=== PATIENT | female | born 1945 | race Caucasian/White ===

== ENCOUNTER 2020-07-24 09:19 | Inpatient (IN) | payer MEDICARE ==
--- OUTSIDE RECORDS SUMMARY | 2020-07-24 09:23 | XMS REPORT | Continuity of Care Document ---
:1945 Author Organization [facility] t Address [address] [place] [address] Care Team Providers Name Role Phone Unavailable Unavailable Unavailable Payers Payer Name Policy Type Policy Number Effective Date Expiration Date S ource Problems Condition Condition Condition Status Onset Resolution Last Treating Co mments Source Name Details Category Date Date Treatment Clinician Date Hypothyroi Problem Active 2020-07-05 M emoria dism, 04:34:20 l unspecifie Nacho n d Hypothyroi dism, unspecifie d Active Problem 07/05/2020 Enayet Rahim HLD Problem Active 2020-07-05 Memor ia 04:34:20 l HLD [place] Active Problem 07/05/2020 Enayet Rahim Maternal Diagnosis Active 2017-07-07 M emoria care for 04:10:19 l benign Maternal Nacho n tumor of care for corpus benign uteri, tumor of unspecifie corpus d uteri, trimester unspecifie d trimester Active Diagnosis 07/07/2017 Enayet Rahim Tinnitus Problem Active 2020-07-05 Mem oria of both 04:34:20 l ears Tinnitus Nacho n of both ears Active Problem 07/05/2020 Enayet Rahim Dizziness Diagnosis Active 2017-07-07 Memoria 04:10:19 l Josh Dizziness Active Diagnosis 07/07/2017 Enayet Rahim Acute Diagnosis Active 2018-10-09 Mem oria sinusitis, 04:10:41 l unspecifie Acute Kamila nn d sinusitis, unspecifie d Active Diagnosis 10/09/2018 Enayet Rahim Screening Diagnosis Active 2017-07-07 Memoria for breast 04:10:19 l cancer [place] Screening for breast cancer Active Diagnosis 07/07/2017 Enayet Rahim Other Diagnosis Active 2017-07-07 Mem oria specified 04:10:19 l bacterial Other Nacho n agents as specified the cause bacterial of agents as diseases the cause classified of elsewhere diseases classified elsewhere Active Diagnosis 07/07/2017 Enzacariaset Jeanm Intramural Diagnosis Active 2017-07-07 Memoria leiomyoma 04:10:19 l of uterus Josh Intramural leiomyoma of uterus Active Diagnosis 07/07/2017 Enzacariaset Jeanm Radicular Diagnosis Active 2017-03-02 Memoria pain of 05:11:39 l right Josh lower back Radicular pain of right lower back Active Diagnosis 03/02/2017 Enzacariaset him Acute Diagnosis Active 2017-03-02 Mem oria right hip 05:11:39 l pain Acute Josh right hip pain Active Diagnosis 03/02/2017 Enpatricia Penam Abnormal Diagnosis Active 2017-08-22 M emoria mammogram 04:10:08 l Abnormal Nacho n mammogram Active Diagnosis 08/22/2017 Enpatricia Penam Vaginal Diagnosis Active 2018-04-28 Me moria yeast 05:10:21 l infection Vaginal Herm yanet yeast infection Active Diagnosis 04/28/2018 Enpatricia Penam Solitary Problem Active 2020-07-05 Mem oria right 04:34:20 l kidney Solitary Nacho n right kidney Active Problem 07/05/2020 Enzacariaset him Neuropathy Problem Active 2020-07-05 M emoria 04:34:20 l Josh Neuropathy Active Problem 07/05/2020 Enpatricia Penam History of Diagnosis Active 2015-12-08 Memoria nephrectom 04:23:53 l y History Josh of nephrectom y Active Diagnosis 12/08/2015 Enayet Rahim Infiltrati Problem Active 2020-07-05 M emoria ng ductal 04:34:20 l carcinoma Josh Infiltrati ng ductal carcinoma Active Problem 07/05/2020 Enzacariaset Rahim Infected Diagnosis Active 2019-02-11 M emoria tooth 05:10:52 l Infected Nacho n tooth Active Diagnosis 02/11/2019 Enzacariaset him Radiation Diagnosis Active 2019-02-11 Memoria therapy 05:10:52 l complicati Nacho n on, Radiation subsequent therapy encounter complicati on, subsequent encounter Active Diagnosis 02/11/2019 Enayet Rahim BMI Diagnosis Active 2020-07-05 Mem oria 24.0-24.9, 04:30:19 l adult BMI [place] 24.0-24.9, adult Active Diagnosis 07/05/2020 Enayet Rahim Breast Diagnosis Active 2018-10-09 Mem oria cancer 04:10:41 l screening Breast Kamila nn cancer screening Active Diagnosis 10/09/2018 Enayet Rahim Osteoporos Diagnosis Active 2016-03-12 Memoria is 05:18:58 l screening Josh Osteoporos is screening Active Diagnosis 03/12/2016 Enayet Rahim BMI Diagnosis Active 2018-10-09 Mem oria 25.0-25.9, 04:10:41 l adult BMI Josh 25.0-25.9, adult Active Diagnosis 10/09/2018 Enayet Rahim Pain in Diagnosis Active 2018-10-09 Me moria left thigh 04:10:41 l Pain in Josh left thigh Active Diagnosis 10/09/2018 Enayet Rahim Seasonal Problem Active 2020-07-05 Mem oria allergic 04:34:20 l rhinitis Seasonal Herm ynaet due to allergic pollen rhinitis due to pollen Active Problem 07/05/2020 Enayet Rahim BMI Diagnosis Active 2020-07-05 Mem oria 22.0-22.9, 04:14:04 l adult BMI [place] 22.0-22.9, adult Active Diagnosis 07/05/2020 Enayet Rahim 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 Active Problem 07/05/2020 Enayet Rahim 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 04:34:20 l diseases [place] classified Polyneurop elsewhere athy in diseases classified elsewhere Active Problem 07/05/2020 Enayet Rahim Hyperglyce Diagnosis Active 2020-01-21 Memoria nate 05:10:07 l Josh Hyperglyce nate Active Diagnosis 01/21/2020 Enayet Rahim Pelvic Diagnosis Active 2020-01-21 Mem oria pain 05:10:07 l Pelvic [place] pain Active Diagnosis 01/21/2020 Enayet Rahim Persistent Diagnosis Active 2020-01-21 Memoria proteinuri 05:10:07 l a Josh Persistent proteinuri a Active Diagnosis 01/21/2020 Enayet Rahim Nephrogeno Problem Active 2020-07-05 M emoria us 04:34:20 l proteinuri Nacho n a Nephrogeno us proteinuri a Active Problem 07/05/2020 Enayet Rahim History of Problem Active 2020-07-05 M emoria left 04:34:20 l nephrectom History Her matta y of left nephrectom y Active Problem 07/05/2020 Enayet Rahim Skin Diagnosis Active 2020-07-05 Mem oria lesion 04:14:04 l Skin Josh lesion Active Diagnosis 07/05/2020 Enzacariaset Rahim Acute pain Diagnosis Active 2020-07-05 Memoria of right 04:14:04 l shoulder Acute [place] pain of right shoulder Active Diagnosis 07/05/2020 Enayet Rahim BMI Diagnosis Active 2020-05-25 Mem oria 21.0-21.9, 04:11:03 l adult BMI [place] 21.0-21.9, adult Active Diagnosis 05/25/2020 Enayet Rahim Encounter Diagnosis Active 2020-05-25 Memoria for 04:11:03 l screening Josh for Encounter depression for screening for depression Active Diagnosis 05/25/2020 Enzacariaset Rahim Age-relate Problem Active 2020-07-05 M emoria d 04:34:20 l osteoporos Nacho n is without Age-relate current d pathologic osteoporos al is without fracture current pathologic al fracture Active Problem 07/05/2020 Enayet Rahim Essential Problem Active 2020-07-05 Me moria (primary) 04:34:20 l hypertensi Nacho n on Essential (primary) hypertensi on Active Problem Enayet Rahim Allergies, Adverse Reactions, Alerts Allergy Allergy Status Severity Reaction(s) Onset Inactive Treating Comm ents Source Name Type Date Date Clinician Amoxicil Amoxicil Active Info Not Dago mary jane rose marie rose marie Available 11-27 l 00:00: [place] 00 No Known DA Active U [facility] 11[facility]30 [place] Allergie 00:00: d s 00 [facility] irena FA Active [facility] [place] 00:00: d 00 [facility] Christiano Verde. Active Info Not Dago mary jane Available 11-04 l 00:00: [place] 00 No Known DA Active U [facility] 4-19 Clear nces 00:00: [place] 00 [facility] MANGOS DA Active [facility] 4-16 Clear 00:00: [place] 00 [facility] Social History Social Habit Start Date Stop Date Quantity Comments Source Useofrecreational/ 2016-03-06 2016-03-06 Memori al Josh [facility]drugs? 00:00:00 00:00:00 Medications Ordered Filled Start Stop Current Ordering Indication Dosage Frequency Signature Comments Components Source Medication Medication Date Date Medication? Clinician (SIG) Name Name Clonidine Yes Gallo take 1 Memor ia HCl - Rubi tablet by l 04:34: mouth Josh 20 twice a day Folic Acid Yes Gallo not Memori a - Rubi defined l 04:30: [place] 19 Gabapentin Yes Gallo 1 capsule M emoria - Rubi l 04:30: [place] 19 Aspirin 2020-0 Yes Gallo 1 tablet Memor ia Adult Low - Rubi l Dose 04:30: [place] 19 Clonidine 2020- Yes Gallo take 1 Memor ia HCl - Rubi tablet by l 04:30: mouth two Josh 19 times daily Vitamin B12 2020- Yes Gallo not Memor ia -29 Rubi defined l 04:30: Josh 19 Synthroid 2020- Yes Gallo take 1 Memor ia -29 Rubi tablet by l 04:30: mouth once Josh 19 a day Alendronate Yes Gallo TAKE 1 Mem oria Sodium -29 Rubi TABLET l 04:30: [place] 19 Rosuvastati 2020- Yes Gallo 1 tablet M emoria n Calcium -29 Rubi l 04:30: Josh 19 Cyclobenzap 2020-0 Yes Gallo 1 tablet M emoria rine HCl 07-05 Rubi as needed l 04:14: Josh Gabapentin Yes Gallo take one Me moria 07-05 Rubi capsule by l 04:14: mouth 3 Josh 04 times a day Rosuvastati Yes Gallo 1 tablet M emoria n Calcium 07-05 Rubi l 04:14: Josh Flonase Yes Gallo 1 spray in Mem oria 07-05 Rubi each l 04:14: nostril Josh Anastrozole Yes Gallo 1 tablet M emoria 07-05 Rubi l 04:14: Josh Zometa Yes Gallo not Memoria 07-05 Rubi defined l 04:14: Josh PredniSONE Yes Gallo 1 tablet Me moria 07-05 Rubi l 04:14: Josh Clonidine Yes Gallo 1 tablet Mem oria HCl 3-19 Rubi l 04:11: Josh Telmisartan Yes Gallo 1 tablet M emoria 3 Rubi l 04:11: Josh Lidocaine 2020-1 Yes Gallo 1 gram Memor ia and 1-04 Rubi l Prilocaine 00:00: [place] 00 Diclofenac 2020-1 Yes Gallo 1 Memori a Sodium 1-04 Rubi applicatio l 00:00: n [place] 00 Folic Acid 2020-0 Yes Gallo not Memori a 6-09 Rubi defined l 04:10: Josh Clonidine 2020-0 Yes Glalo 1 tablet Mem oria HCl 6-04 Rubi l 00:00: Cetirizine 2020-0 Yes Gallo 1 tablet Me moria HCl 6-04 Rubi l 00:00: [place] 00 Clonidine 2020-0 Yes Gallo 1 tablet Mem oria HCl 6-04 Rubi l 00:00: [place] 00 Alendronate 2020-0 Yes Gallo TAKE 1 Mem oria Sodium 1-11 Rubi TABLET l 00:00: [place] 00 Gabapentin 2019-0 Yes Gallo 1 capsule M emoria 8-13 Rubi l 04:10: Josh Alendronate 2019-0 Yes Gallo TAKE 1 Mem oria Sodium 7-23 Rubi TABLET l 00:00: Levofloxaci 2019-0 Yes Gallo 1 tablet M emoria n 4-08 Rubi l 00:00: Alendronate 2019-0 Yes Gallo TAKE 1 Mem oria Sodium 4-08 Rubi TABLET l 00:00: Synthroid 2019-0 Yes Gallo 1 tablet Mem oria 2-20 Rubi l 05:10: Josh Atorvastati 2019-0 Yes Gallo TAKE 1 Mem oria n Calcium 2-20 Rubi TABLET BY l 05:10: MOUTH Josh 21 EVERY DAY Rosuvastati 2019-0 Yes Gallo 1 tablet M emoria n Calcium 2-15 Rubi l 00:00: Alendronate 2019-0 Yes Gallo TAKE 1 Mem oria Sodium 1-09 Rubi TABLET l 05:10: [place] 30 Tizanidine 2018-1 Yes Gallo 1 tablet Me moria HCl 0-02 Rubi as needed l 04:11: Josh 39 Levofloxaci 2018-1 Yes Gallo 1 tablet M emoria n 0-02 Rubi l 04:11: Josh 39 Atorvastati 2018-1 Yes Gallo TAKE 1 Mem oria n Calcium 0-02 Rubi TABLET BY l 04:11: MOUTH Josh 39 EVERY DAY Prevnar 13 2018-0 Yes Gallo as Memori a 9-25 Rubi directed l 00:00: Tetanus-Dip 2018-0 Yes Gallo as Memor ia htheria 9-25 Rubi directed l Toxoids Td 00:00: Alendronate 2018-0 Yes Gallo 1 tablet M emoria Sodium 6-16 Rubi l 00:00: Flonase 2018-0 Yes Gallo 1 spray in Mem oria 4-25 Rubi each l 00:00: nostril Levofloxaci 2018-0 Yes Gallo 1 tablet M emoria n 4-25 Rubi l 00:00: Flonase 2018-0 Yes Gallo 1 spray in Mem oria 4-25 Rubi each l 00:00: nostril Tizanidine 2017-1 Yes Gallo 1 tablet Me moria HCl 2-18 Rubi as needed l 00:00: Tramadol 2017-1 Yes Gallo 1 tablet Dago mary jane HCl 2-18 Rubi as needed l 00:00: Josh 00 Levofloxaci 2017-0 Yes Gallo 1 tablet M emoria n 9-14 Rubi l 04:10: Josh 27 Gabapentin 2017-0 Yes Gallo take one Me moria 9-14 Rubi capsule by l 04:10: mouth 3 [place] 27 times a day Synthroid 2017-0 Yes Gallo 1 tablet Mem oria 8-09 Rubi l 00:00: Josh 00 Lipitor 2017-0 Yes Gallo take 1 Memoria 8-07 Rubi tablet by l 00:00: mouth [place] 00 every day Lipitor 2017-0 Yes Gallo take 1 Memoria 5-20 Rubi tablet by l 04:10: mouth Josh 26 every day SM Calcium 2017-0 Yes Gallo 1 tablet Me moria 500/Vitamin 5-18 Rubi with meals l D3 00:00: [place] 00 Alendronate 2017-0 Yes Gallo 1 tablet M emoria Sodium 5-18 Rubi l 00:00: [place] 00 Clonidine 2017-0 Yes Gallo take 1 Memor ia HCl 1-04 Rubi tablet by l 05:18: mouth Josh 58 twice a day Blood 2016-0 Yes Gallo as Memoria Pressure 3-10 Rubi directed l Monitor 00:00: Blood 2016-0 Yes Gallo as Memoria Pressure 3-10 Rubi directed l Monitor 00:00: [place] 00 Synthroid 2015-0 Yes Gallo 1 tablet Mem oria 7-09 Rubi l 00:00: Josh 00 Gabapentin 2015-0 Yes Gallo 1 capsule M emoria 6-01 Rubi l 00:00: Lipitor 2015-0 Yes Gallo 1 tablet Memor ia 2-20 Rubi l 00:00: Clonidine 2012-1 Yes Gallo 1 tablet Mem oria HCl 1-20 Rubi at bedtime l 00:00: Vital Signs Vital Name Observation Time Observation Value Comments Source Weight 2020-05-17 19:00:00 [facility] Height 2020-05-17 19:00:00 [facility] Temperature Oral (F) 2020-05-17 19:00:00 97.4 F [facility] Diastolic (mm Hg) 2020-05-17 19:00:00 Mem orial [place] Systolic (mm Hg) 2020-05-17 19:00:00 Dago rial [place] Weight 2020-01-11 19:00:00 [facility] Josh Height 2020-01-11 19:00:00 [facility] [place] Temperature Oral (F) 2020-01-11 19:00:00 97.4 F [facility] [place] Diastolic (mm Hg) 2020-01-11 19:00:00 Mem orial Josh Systolic (mm Hg) 2020-01-11 19:00:00 Dago rial [place] Weight 2019-11-28 16:45:00 [facility] Josh Height 2019-11-28 16:45:00 [facility] Josh Temperature Oral (F) 2019-11-28 16:45:00 97.4 F [facility] Josh Diastolic (mm Hg) 2019-11-28 16:45:00 Mem orial Josh Systolic (mm Hg) 2019-11-28 16:45:00 Dago rial Josh Weight 2019-08-11 18:00:00 [facility] [place] Height 2019-08-11 18:00:00 [facility] [place] Temperature Oral (F) 2019-08-11 18:00:00 97.9 F [facility] Josh Diastolic (mm Hg) 2019-08-11 18:00:00 Mem orial Josh Systolic (mm Hg) 2019-08-11 18:00:00 Adgo rial [place] Weight 2019-02-07 15:15:00 [facility] Josh Height 2019-02-07 15:15:00 [facility] Josh Temperature Oral (F) 2019-02-07 15:15:00 97.7 F [facility] Josh Diastolic (mm Hg) 2019-02-07 15:15:00 Mem orial Josh Systolic (mm Hg) 2019-02-07 15:15:00 Dago rial Josh Weight 2018-11-04 19:45:00 [facility] Josh Height 2018-11-04 19:45:00 [facility] [place] Temperature Oral (F) 2018-11-04 19:45:00 99.3 F [facility] Josh Diastolic (mm Hg) 2018-11-04 19:45:00 Mem orial Josh Systolic (mm Hg) 2018-11-04 19:45:00 Dago rial [place] Weight 2018-09-30 18:45:00 [facility] Josh Height 2018-09-30 18:45:00 [facility] Josh Temperature Oral (F) 2018-09-30 18:45:00 99.1 F [facility] Josh Diastolic (mm Hg) 2018-09-30 18:45:00 Mem orial Josh Systolic (mm Hg) 2018-09-30 18:45:00 Dago rial [place] Weight 2018-04-23 15:45:00 [facility] [place] Height 2018-04-23 15:45:00 [facility] Johs Temperature Oral (F) 2018-04-23 15:45:00 98.3 F [facility] [place] Diastolic (mm Hg) 2018-04-23 15:45:00 Mem orial [place] Systolic (mm Hg) 2018-04-23 15:45:00 Dago rial Josh Weight 2018-04-01 19:30:00 [facility] Josh Height 2018-04-01 19:30:00 [facility] [place] Temperature Oral (F) 2018-04-01 19:30:00 98.9 F [facility] [place] Diastolic (mm Hg) 2018-04-01 19:30:00 Mem orial [place] Systolic (mm Hg) 2018-04-01 19:30:00 Dago rial [place] Weight 2017-12-01 16:15:00 [facility] [place] Height 2017-12-01 16:15:00 [facility] Josh Temperature Oral (F) 2017-12-01 16:15:00 97.9 F [facility] Josh Diastolic (mm Hg) 2017-12-01 16:15:00 Mem orial Josh Systolic (mm Hg) 2017-12-01 16:15:00 Dago rial [place] Weight 2017-07-01 16:15:00 [facility] [place] Height 2017-07-01 16:15:00 [facility] Josh Temperature Oral (F) 2017-07-01 16:15:00 98.8 F [facility] Josh Diastolic (mm Hg) 2017-07-01 16:15:00 Mem orial Josh Systolic (mm Hg) 2017-07-01 16:15:00 Dago rial Josh Weight 2017-02-23 21:00:00 Memorial Josh Height 2017-02-23 21:00:00 [facility] Josh Temperature Oral (F) 2017-02-23 21:00:00 98.5 F [facility] Josh Diastolic (mm Hg) 2017-02-23 21:00:00 Mem orial Josh Systolic (mm Hg) 2017-02-23 21:00:00 Dago rial Josh Weight 2016-11-14 16:45:00 [facility] Josh Height 2016-11-14 16:45:00 [facility] [place] Temperature Oral (F) 2016-11-14 16:45:00 97.5 F [facility] [place] Diastolic (mm Hg) 2016-11-14 16:45:00 Mem orial Josh Systolic (mm Hg) 2016-11-14 16:45:00 Dago rial Josh Weight 2016-07-24 19:00:00 [facility] [place] Height 2016-07-24 19:00:00 [facility] [place] Temperature Oral (F) 2016-07-24 19:00:00 98.8 F [facility] [place] Diastolic (mm Hg) 2016-07-24 19:00:00 Mem orial [place] Systolic (mm Hg) 2016-07-24 19:00:00 Dago rial Josh Weight 2016-03-06 19:45:00 [facility] [place] Height 2016-03-06 19:45:00 [facility] Josh Temperature Oral (F) 2016-03-06 19:45:00 97.9 F [facility] [place] Diastolic (mm Hg) 2016-03-06 19:45:00 Mem orial Josh Systolic (mm Hg) 2016-03-06 19:45:00 Dago rial Josh Weight 2015-11-23 16:30:00 [facility] Josh Height 2015-11-23 16:30:00 [facility] Josh Temperature Oral (F) 2015-11-23 16:30:00 97.5 F [facility] Josh Diastolic (mm Hg) 2015-11-23 16:30:00 Mem orial [place] Systolic (mm Hg) 2015-11-23 16:30:00 Dago rial Josh Procedures This patient has no known procedures. Encounters Start End Encounter Admission Attending Care Care Encounter Source Date/Time Date/Time Type Type Clinicians Facility Department ID 2020-05-17 2020-05-17 Outpatient Inpatient Inpatient [id number] [facility] 14:00:00 14:00:00 Providers Providers al [facility] of [facility] 2020-01-27 2020-01-27 Outpatient Inpatient Inpatient [id number] [facility]inic 09:47:00 09:47:00 Providers Providers al [facility] of [facility] 2020-01-20 2020-01-20 Outpatient Inpatient Inpatient [id number] [facility]Clinic 16:22:00 16:22:00 Providers Providers al [facility] of [facility] 2020-01-11 2020-01-11 Outpatient Inpatient Inpatient [id number] eClinic 13:00:00 13:00:00 Providers Providers al [facility] of [facility] 2019-12-30 2019-12-30 Outpatient Inpatient Inpatient [id number] [facility]Clinic 10:11:00 10:11:00 Providers Providers al [facility] of [facility] 2019-12-26 2019-12-26 Outpatient Inpatient Inpatient [id number] eClinic 08:52:00 08:52:00 Providers Providers al [facility] of [facility] 2019-11-28 2019-11-28 Outpatient Inpatient Inpatient [id number] eClinic 11:45:00 11:45:00 Providers Providers al [facility] of [facility] 2019-08-12 2019-08-12 Outpatient Inpatient Inpatient [id number] eClinic 16:56:00 16:56:00 Providers Providers al [facility] of [facility] 2019-08-11 2019-08-11 Outpatient Inpatient Inpatient [id number] eClinic 13:00:00 13:00:00 Providers Providers al [facility] of [facility] 2019-07-20 2019-07-20 Outpatient Inpatient Inpatient [id number] eClinic 14:45:00 14:45:00 Providers Providers al [facility] of [facility] 2019-02-22 2019-02-22 Outpatient Inpatient Inpatient [id number] eClinic 11:17:00 11:17:00 Providers Providers al [facility] of [facility] 2019-02-07 2019-02-07 Outpatient Inpatient Inpatient [id number] [facility]Clinic 09:15:00 09:15:00 Providers Providers al [facility] of [facility] 2018-11-06 2018-11-06 Outpatient Inpatient Inpatient [id number] eClinic 17:56:00 17:56:00 Providers Providers al [facility] of [facility] 2018-11-05 2018-11-05 Outpatient Inpatient Inpatient [id number] eClinic 09:26:00 09:26:00 Providers Providers al [facility] of [facility] 2018-11-04 2018-11-04 Outpatient Inpatient Inpatient [id number] [facility]Clinic 14:45:00 14:45:00 Providers Providers al [facility] of [facility] 2018-11-03 2018-11-03 Outpatient Inpatient Inpatient [id number] [facility]Clinic 14:45:00 14:45:00 Providers Providers al [facility] of [facility] 2018-10-25 2018-10-25 Outpatient Inpatient Inpatient [id number] eClinic 08:43:00 08:43:00 Providers Providers al [facility] of [facility] 2018-10-18 2018-10-18 Outpatient Inpatient Inpatient [id number] [facility]Clinic 08:00:00 08:00:00 Providers Providers al [facility] of [facility] 2018-10-05 2018-10-05 Outpatient Inpatient Inpatient [id number] eClinic 16:54:00 16:54:00 Providers Providers al [facility] of [facility] 2018-09-30 2018-09-30 Outpatient Inpatient Inpatient [id number] eClinic 13:45:00 13:45:00 Providers Providers al [facility] of [facility] 2018-09-20 2018-09-20 Outpatient Inpatient Inpatient [id number] eClinic 15:53:00 15:53:00 Providers Providers al [facility] of [facility] 2018-07-07 2018-07-07 Outpatient Inpatient Inpatient [id number] eClinic 13:57:00 13:57:00 Providers Providers al [facility] of [facility] 2018-07-02 2018-07-02 Outpatient Inpatient Inpatient [id number] eClinic 11:38:00 11:38:00 Providers Providers al [facility] of [facility] 2018-04-23 2018-04-23 Outpatient Inpatient Inpatient [id number] eClinic 09:45:00 09:45:00 Providers Providers al [facility] of [facility] 2018-04-01 2018-04-01 Outpatient Inpatient Inpatient [id number] eClinic 13:30:00 13:30:00 Providers Providers al [facility] of [facility] 2018-03-18 2018-03-18 Outpatient Inpatient Inpatient [id number] eClinic 08:06:00 08:06:00 Providers Providers al [facility] of [facility] 2018-03-16 2018-03-16 Outpatient Inpatient Inpatient [id number] eClinic 15:44:00 15:44:00 Providers Providers al [facility] of [facility] 2018-03-16 2018-03-16 Outpatient Inpatient Inpatient [id number] eClinic 09:14:00 09:14:00 Providers Providers al [facility] of [facility] 2017-12-01 2017-12-01 Outpatient Inpatient Inpatient [id number] eClinic 11:15:00 11:15:00 Providers Providers al [facility] of [facility] 2017-08-31 2017-08-31 Outpatient Inpatient Inpatient [id number] eClinic 10:18:00 10:18:00 Providers Providers al [facility] of [facility] 2017-08-18 2017-08-18 Outpatient Inpatient Inpatient [id number] eClinic 08:26:00 08:26:00 Providers Providers al [place] [facility] 2017-07-01 2017-07-01 Outpatient Inpatient Inpatient [id number] eClinic 11:15:00 11:15:00 Providers Providers al [employer] [place] [employer] [facility] 2017-02-23 2017-02-23 Outpatient Inpatient Inpatient [id number] eClinic 15:00:00 15:00:00 Providers Providers al [employer] [place] [employer] [facility] 2016-11-14 2016-11-14 Outpatient Inpatient Inpatient [id number] eClinic 11:45:00 11:45:00 Providers Providers al [employer] [place] [employer] [facility] 2016-07-24 2016-07-24 Outpatient Inpatient Inpatient [id number] eClinic 14:00:00 14:00:00 Providers Providers al [employer] [place] [employer] [facility] 2016-03-06 2016-03-06 Outpatient Enayet Enayet [id number] eClinic 13:45:00 13:45:00 Flakita Boggs MD, Miranda callejas MD, PA PA 2015-11-23 2015-11-23 Outpatient Enayet Enayet [id number] eClinic 11:30:00 11:30:00 Flakita Boggs MD, Miranda callejas MD, PA PA Results Test Description Test Time Test Comments Results Result [facility] e Comments SURGICAL 2018-12-09 SPECIMENS 08:12:00 RUN DATE: 12/09/18 [facility] *LIVE* PAGE 1 RUN TIME: 811 Specimen Inquiry RUN USER: INTERFACE KAZ ENT: ERI ANDREWS LOC: CHID[facility] U #: [id number] AGE/SX: 73/F ROOM: RE12/02/18[facility] DR: Jeancarlos Raymond MD : 41 BED: DIS: STATUS: [facility] TLOC: SPEC #: [id number] RECD: 12/03/18 STATUS: RAMY RE #: [id number] ANN: 12/03/18 [facility] DR: Jeancarlos Raymond MD ENTERED: 12/07/18 SP TYPE: SURG SPEC OTHR DR: Gallo Venegas MD ORDERED: GM LEVEL 4 CODES: [id number] - BREAST, NOS [id number] - LYMPH NODE, NOS COPIES [place]: [place] [id number] [facility] [address] [place] [address] Jeancarlos Raymond MD [address] [place] [address] [address] [place] [address] PROCEDURES: GM LEVEL 4 (Incomplete) TISSUES: 1. BREAST, NOS - Breast, left, lumpectomy specimen, excis 2. BREAST, NOS - Breast, left, medial margin, excision 3. BREAST, NOS - Breast, left, posterior margin, excision 4. LYMPH NODE, NOS - Lymph node, left sentinel axilla, excisi FINAL DIAGNOSIS Breast, left, additional medial and posterior margins, lumpectomy specimen, excision: Invasive ductal carcinoma, Radha grade I, 0.6 cm in greatest dimension, no definite lymphovascular invasion identified; DCIS, intermediate grade, cribriform type with comedonecrosis, 0.2 cm in greatest dimension, final margins free of tumor; previous biopsy site changes. Lymph node, left sentinel axilla, excision: No metastatic carcinoma identified. GROSS AND MICROSCOPIC GROSS EXAMINATION: Received in formalin labeled left breast lumpectomy short superior long lateral double deep is a 5 portion of fibroadipose. The specimen is inked superior red, inferior orange, lateral black, medial yellow, anterior blue, posterior green. Submitted from superior to inferior (A.)-(M). CONTINUED ON NEXT PAGE RUN DATE: 12/09/18 [facility] *LIVE* PAGE 2 RUN TIME: 811 Specimen Inquiry RUN USER: INTERFACE SPEC #: [id number] PATIENT: ERI ANDREWS #[id number] (Continued) ------- GROSS AND MICROSCOPIC (Continued) Received in formalin labeled left breast medial margin with one true margin is a 1.8 x 1 x 0.4 cm portion of fibroadipose, the new margin is inked black submitted (N). Received in formalin labeled left posterior margin clip on true margin is a 1.5 x 0.4 x 0.5 cm portion of fibroadipose, the new margin is inked black. Submitted (O). Seated in formalin labeled left sentinel node is is a 2.1 cm lymph node with an additional 1.1 cm portion of adipose which may represent lymph node. Submitted (P) lymph node (Q) possible node. MICROSCOPIC EXAMINATION: Sections of the left breast tissue reveal atypical infiltrating glandular structures with surrounding fibrosis. The invasive tumor is 0.1 cm from the original posterior margin. There is some surrounding ductal carcinoma in situ present cribriform type with comedonecrosis. The margins appear free of DCIS. The additional medial and posterior margins are free of tumor. Previous biopsy site changes are present. The sentinel lymph node reveal a single lymph node without evidence of metastatic carcinoma with multiple cut sections, vimentin and pankeratin staining. (When special stains have been reviewed, the appropriate positive/negative controls have been reviewed and are appropriately positive/negative). POST-OP DIAGNOSIS Breast cancer PRE-OP DIAGNOSIS Breast cancer SYNOPTIC REPORT *Procedure: Excision, wire guided, mastectomy *Lymph Node Sampling: [place], axillary dissection, intraparenchymal *Specimen Laterality: Left. Tumor site: Left Breast. 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 *Tumor Size: Greatest dimension: 0.6 cm. *Histologic Grade: Radha Grade: I. Glandular Differentiatiation: Majority. Nuclear Pleomorphism: Moderate. Mitotic Count:Less than 3. *Tumor Focality: Unifocal. *Ductal Carcinoma In Situ (DCIS): Present. CONTINUED ON NEXT PAGE RUN DATE: 12/09/18 [facility] *LIVE* PAGE 3 RUN TIME: 811 Specimen Inquiry RUN USER: INTERFACE SPEC #: [id number] PATIENT: ERI ANDREWS #[id number] (Continued) ------- SYNOPTIC REPORT (Continued) DCIS Pattern Necrosis: Cribriform with necrosis. DCIS max size: 0.2 cm. Blocks with DCIS: 3. Blocks examined: 15. *Macroscopic Microscopic Extent of Tumor: N/A. *Margins: Invasive Carcinoma: Final margins free of tumor. DCIS: Final margins free of tumor. *Lymph Nodes: Number of sentinel lymph nodes examined: 1. Involved (size): 0. Lymphovascular invasion: Not identified. Previous biopsy site changes: Present. *TNM: T1b N0 MX. ER/TX/HER2 status: By outside report only, ER+ 95%; TX- <1%; HER2- 0; Ki67 Low <1%. Signed SIGNATURE ON FILE Mayo Pandya DO 12/09/18 0812 END OF REPORT - SENT NODE RAD 2018-12-02 FAX: TR DEVIN 15:16:00 Gallo Venegas MD [phone] Rudd: St: REG FAX: Y Jeancarlos Raymond MD [phone] ------- Name: ERI ANDREWS [facility] : 1945 Age/S: 73/F [address] [place] [address] Unit #: [id number] Loc: [place] [address] Phys: Jeancarlos Raymond MD Acct: [id number] Dis Date: Status[place] [facility] [place] #: [phone] Exam Date: 12/02/2018 0850 FAX #: [phone] Reason: SENTINAL INJ/BIOPSY FOR BREAST CA EXAMS: CPT CODE: [id number] SENT NODE RAD TR INJ 36215 NUCLEAR MEDICINE INJECTION FOR LYMPHOSCINTIGRAPHY HISTORY: Breast cancer. Informed consent was obtained. A 1 mCi dose of technetium 99m sulfur colloid was subsequently injected the left breast prior to surgery by the Department of nuclear medicine. No imaging obtained. IMPRESSION: Nuclear medicine injection for intraoperative lymphoscintigraphy/senti aman node resection as described. No imaging obtained. at 1516 Reported and signed by: Thelma Boateng D.O. CC: Gallo Venegas MD; Jeancarlos Raymond MD Technologist: RT Ranulfo(Oralia)([facility]) Trnscrd Date/Time/By: 12/02/2018 (3416) : By: [email or web address] Orig Print D/T: S: 12/02/2018 (0046) PAGE 1 Signed Report CBC W/AUTO DIFF 2018-11-30 13:09:00 Test Item Value Reference Range Interpretation Comme nts WHITE BLOOD CELL (test code = WBC) 4.52 x10 3/uL 4.5-11.0 N RED BLOOD CELL (test code = RBC) 4.53 x10 6/uL 3.54-5.02 N HEMOGLOBIN (test code = HGB) 14.0 g/dL 11.0-15.0 N HEMATOCRIT (test code = HCT) 42.6 % 33.0-45.0 N MEAN CELL VOLUME (test code = MCV) 94.0 fL 81.0-99.0 N MEAN CELL HGB (test code = MCH) 30.9 pg 27.0-33.0 N MEAN CELL HGB CONCETRATION (test code = MCHC) 32.9 g/dL 33.0-37. 0 L RED CELL DISTRIBUTION WIDTH CV (test code = RDW) 12.0 % 11.5- 14.5 N RED CELL DISTRIBUTION WIDTH SD (test code = RDW-SD) 41.9 fL 37 .0-54.0 N PLATELET COUNT (test code = PLT) 170 x10 3/uL 150-400 N MEAN PLATELET VOLUME (test code = MPV) 10.1 fL 7.0-9.0 H NEUTROPHIL % (test code = NT%) 53.6 % 56.0-77.0 L IMMATURE GRANULOCYTE % (test code = IG%) 0.2 % 0.0-2.0 N LYMPHOCYTE % (test code = LY%) 33.6 % 14.0-32.0 H MONOCYTE % (test code = MO%) 9.5 % 4.8-9.0 H EOSINOPHIL % (test code = EO%) 2.0 % 0.3-3.7 N BASOPHIL % (test code = BA%) 1.1 % 0.0-2.0 N NUCLEATED RBC % (test code = NRBC%) 0.0 % 0-0 N NEUTROPHIL # (test code = NT#) 2.42 x10 3/uL 2.0-7.6 N IMMATURE GRANULOCYTE # (test code = IG#) 0.01 x10 3/uL 0.00-0.03 N LYMPHOCYTE # (test code = LY#) 1.52 x10 3/uL 1.0-3.8 N MONOCYTE # (test code = MO#) 0.43 x10 3/uL 0.1-0.8 N EOSINOPHIL # (test code = EO#) 0.09 x10 3/uL 0.0-0.2 N BASOPHIL # (test code = BA#) 0.05 x10 3/uL 0.0-0.2 N NUCLEATED RBC # (test code = NRBC#) 0.00 x10 3/uL 0.0-0.1 N MANUAL DIFF REQUIRED (test code = MDIFF) NO - XR CHEST 2 [id number] 12:57:00 FAX: Gallo Venegas MD [phone] Rudd: St: PRE FAX: Jeancarlos Acosta MD [phone] Name: ERI ANDREWS [facility] : 1945 Age/S: 73/F [address] [place] [address] Unit #: [id number] Loc: [place] [address] Phys: Jeancarlos Raymond MD Acct: [id number] Dis Date: Status: [place] [facility] [place] #: [phone] Exam Date: 11/30/2018 1225 FAX #: [phone] Reason: PREOP FOR LUMPECTOMY FOR BREAST CANER EXAMS: CPT CODE: [id number] XR CHEST 2 V 15408 EXAM: PA and lateral chest. EXAM DATE: November 30, 2018 CLINICAL HISTORY: PREOP FOR LUMPECTOMY FOR BREAST CANER COMPARISON: June 19, 2009 Heart size is within normal limits. Mild atherosclerotic calcifications are identified in the intrathoracic ao rta.. The lungs appear free of acute disease. Osseous structures demonstrate no acute abnormalities. IMPRESSION: No evidence of acute cardiopulmonary disease. at 1257 Reported and signed by: Jo Wellington M.D. CC: Gallo Venegas MD; Jeancarlos Raymond MD Technologist: Rayne Espinoza RT(R) Trnscrd Date/Time/By: 11/30/2018 (1257) : By: AleCER Orig Print D/T: S: 11/30/2018 (1300) PAGE 1 Signed ReportCOMPREHENSIVE METABOLIC [id number] 12:40:00 Test Item Value Reference Range Interpretation Comments SODIUM (test code = NA) 139 mEq/L 134-147 N POTASSIUM (test code = 3.1 mEq/L 3.4-5.0 L K) CHLORIDE (test code = 105 mEq/L 100-108 N CL) CARBON DIOXIDE (test 30 mEq/L 21-33 N code = CO2) ANION GAP (test code = 7 0-20 N GAP) GLUCOSE (test code = 87 mg/dL 70-110 N GLU) BLOOD UREA NITROGEN 11 mg/dL 7-18 N (test code = BUN) GLOMERULAR FILTRATION 39.9 70-80 L Units of measure = RATE (test code = GFR) ml/mi n/1.73 m2 CREATININE (test code = 1.3 mg/dL 0.6-1.3 N CREAT) TOTAL PROTEIN (test 7.5 g/dL 6.4-8.2 N code = PROT) ALBUMIN (test code = 3.90 g/dL 3.4-5.0 N ALB) CALCIUM (test code = 9.0 mg/dL 8.0-10.5 N CA) BILIRUBIN TOTAL (test 0.5 MG/DL <1.5 N code = BILT) SGOT/AST (test code = 19 IUnit/L 15-37 N AST) SGPT/ALT (test code = 30 IUnit/L 15-65 N ALT) ALKALINE PHOSPHATASE 43 IUnit/L 20-125 N TOTAL (test code = ALKP) COMPREHENSIVE METABOLIC [id number] 12:32:00 Test Item Value Reference Range Interpretation Comments SODIUM (test code = NA) 139 mEq/L 134-147 N POTASSIUM (test code = K) 3.1 mEq/L 3.4-5.0 L CHLORIDE (test code = CL) 105 mEq/L 100-108 N CARBON DIOXIDE (test code = CO2) 30 mEq/L 21-33 N ANION GAP (test code = GAP) 7 0-20 N GLUCOSE (test code = GLU) 87 mg/dL 70-110 N BLOOD UREA NITROGEN (test code = 11 mg/dL 7-18 N BUN) GLOMERULAR FILTRATION RATE (test 70-80 code = GFR) CREATININE (test code = CREAT) mg/dL 0.6-1.3 TOTAL PROTEIN (test code = PROT) g/dL 6.4-8.2 ALBUMIN (test code = ALB) g/dL 3.4-5.0 CALCIUM (test code = CA) 9.0 mg/dL 8.0-10.5 N BILIRUBIN TOTAL (test code = BILT) MG/DL <1.5 SGOT/AST (test code = AST) IUnit/L 15-37 SGPT/ALT (test code = ALT) IUnit/L 15-65 ALKALINE PHOSPHATASE TOTAL (test IUnit/L 20-125 code = ALKP) - NM BONE WHOLE [id number] 16:08:00 FAX: Osmel Hernandez MD [phone] Rudd: St: [facility] FAX: Gallo Venegas MD [phone] Name: ERI ANDREWS [facility] : 1945 Age/S: 73/F [address] [place] [address] Unit #: [id number] Loc: [place] [address] Phys: Osmel Silveira MD Acct: G [id number] Dis Date: Status: REG CLI PHONE #: [phone] Exam Date: 11/23/2018 1312 FAX #: [phone] Reason: C50.412, BREAST CANCER. EXAMS: CPT CODE: [id number] NM BONE WHOLE BODY 98145 NUCLEAR MEDICINE WHOLE-BODY BONE SCAN 11/23/2018 AT 1243 HOURS. MEDICAL HISTORY: Breast cancer diagnosis one month ago. RADIOPHARMACEUTICAL: 25 mCi of 99m Technetium HDP via left antecubital fossa IV. No reported injection complication. COMPARISON STUDIES: None relevant. Brief reference is made to the visualized bone marrow in the remote abdomen MRI from 06/22/2009. FINDINGS: Anterior and posterior planar images of the body were obtained as well as spot views of the chest and abdomen/pelvis. Degenerative type activity is iden tified involving the right acromioclavicular joint, the right articular facets at L3 and L5 as well as both hips and knees. Biomechanical stress activity is also seen involving the proximal and mid tibial metaphysis/diaphysis. No abnormal foci of radiotracer uptake are seen to suggest metastatic disease. Physiologic radiotracer excretion is seen in the right kidney with nonvisualization of left renal activity. This may reflect prior nephrectomy in a patient with remote history of complex left renal mass by MRI. Low-volume blood pool activity is also identified. IMPRESSION: 1. No scintigraphic evidence of skeletal metastasis. 2. Polyarticular degenerative type activity as described. 3. Possible left nephrectomy. SL: CESAR at 9994 Reported and signed by: Joselo Lentz M.D. CC: Osmel Silveira MD; Gallo Venegas MD Technologist: Madalyn Dietrich RT(N)(CT)(PET) Trnsc Date/Time/By: 11/23/2018 (5260) : By: [email or web address] Orig Print D/T: S: 11/23/2018 (3428) PAGE 1 Signed ReportSOLIS BREAST [id number] 15:48:00 RUN DATE: 11/01/18 [facility] *LIVE* PAGE 1 RUN TIME: 1549 Specimen Inquiry RUN USER: INTERFACE PATIENT: ERI ANDREWS LOC: [place] K[place] #: [id number] AGE/SX: 73/F ROOM: RE10/27/18[facility] DR: Gallo Venegas MD : [birth year] BED: DIS: STATUS: PRE REF TLOC: SPEC #: [id number] RECD: 10/27/18 STATUS: RAMY REAnthony #: [id number] ANN: 10/27/18 [facility] DR: Gallo Venegas MD ENTERED: 10/27/18 SP TYPE: RACIEL FAIRCHILD DR: ORDERED: RACIEL VIEIRA HISTOLOGY: TISSUE ID BLK PCS MARY LEV PROCEDURE DISPOSITION ____ ___ ___ ___ BREAST, NOS A 1 2 PROCEDURES: RACIEL VIEIRA (10/27/18) TISSUES: A. BREAST, NOS - LEFT BREAST BIOPSY @ 2 [facility] Result ID: [id number] Clinical History Left breast mass Diagnosis Breast, left, 2 o'clock, 6 cm from nipple, ultrasound-guided needle core biopsy: INFILTRATING DUCTAL CARCINOMA, MODIFIED VAUGHN JARVIS GRADE 1 3 OF 3 CORES, 0.6 CM GREATEST DIMENSION ASSOCIATED INTERMEDIATE-GRADE CRIBRIFORM DCIS Gross Description "Left breast biopsy @ 2 o'clock, 6 cm from nipple" Received in formalin are three yellow-lopez fibrofatty tissue cores, 1.1 - 1.5 cm in greatest dimension. The entire specimen submitted as A. /nr Fixation time: The specimen was obtained on October 27, 2018 and placed in formalin at 1341 CDT, processor started on October 28, 2018 at 0302 CDT, fixation time 13 hours 21 minutes. Microscopic Findings "Left breast biopsy @ 2 o'clock, 6 cm from nipple" Sections demonstrate breast parenchyma. Atypical infiltrating cell population is identified. The cells demonstrate minimal pleomorphism with prominent ductal formation identified. Microcalcifications are seen in associated with the infiltrating carcinoma. Immunohistochemistry for p63 confirms the absence of myoepithelial cells surrounding the invasive carcinoma. The carcinoma demonstrates low mitotic activity (2/10 HPF). Associated intermediate-grade (cribriform) type DCIS is CONTINUED ON NEXT PAGE RUN DATE: 11/01/18 [facility] *LIVE* PAGE 2 RUN TIME: 1549 Specimen Inquiry RUN USER: INTERFACE SPEC #: [facility]:[id number]: ERI ANDREWS #[id number] (Continued) [facility] (Continued) also identified. Intradepartmental Consultation: Marce Joaquin M.D. ELECTRONIC SIGNATURE Irvin Castellano M.D. [phone] Signed SIGNATURE ON TANI Irvin Castellano M011/01/18 1548 END OF REPORT RACIEL BREAST [id number] 15:48:00 RUN DATE: 11/05/18 [facility] - LAB *LIVE* PAGE 1 RUN TIME: 1031 Specimen Inquiry RUN USER: INTERFACE PATIENT: ERI ANDREWS LOC: [facility] [place] #: [id number] AGE/SX: 73/F ROOM: RE10/27/18PHILIP DR: Gallo Venegas MD : 41 BED: DIS: STATUS: PRE REF TLOC: SPEC #: [id number] RECD: 10/27/18 STATUS: RAMY REQ #: [id number] ANN: 10/27/[address]: Gallo Venegas MD ENTERED: 10/27/18 SP TYPE: [facility] OT DR: ORDERED: [facility] [place] HISTOLOGY: TISSUE ID BLK PCS MARY LEV PROCEDURE DISPOSITION ____ ___ ___ ___ BREAST, NOS A 1 2 PROCEDURES: [facility] [place] (10/27/18) TISSUES: A. BREAST, NOS - LEFT BREAST BIOPSY @ 2 IMAGE ANALYSIS REPORT Addendum #1 Entered: 11/04/18 Breast Biomarker Report Reported: 11/04/2018 InterpretationESTROGEN RECEPTOR: POSITIVE, 95%, STRONG INTENSITYPROGESTERONE RECEPTOR: NEGATIVE, LESS THAN 1%, MEDIUM INTENSITYHER- 2/elaine by IHC: 0, NEGATIVEKi-67: LESS THAN 1% Result Reference RangeEstrogen and progesterone receptor:Positive: >=1%Negative:<1%Her-2/elaine by IHC:3+ POSITIVE2+ EQUIVOCAL1+ NEGATIVE0 NEGATIVE Specimen ProcessingCONTROL STATEMENT: Appropriate controls present. SPECIMEN ADEQUACY: Adequate specimen. Specimen fixed in 10% neutral buffered formalin,paraffin embedded. STANDARD ASSAY CONDITIONS: Reported fixation time for the specimen is 13 hours and 21minutes in 10% neutral buffered formalin. CONTINUED ON NEXT PAGE RUNDATE: 11/05/18 [facility] - LAB *LIVE* PAGE 2 RUN TIME: 1031 Specimen Inquiry RUN USER: INTERFACE SPEC #: [id number] PATIENT: ERI ANDREWS #[id number] (Continued) IMAGE ANALYSIS REPORT (Continued) According to ASCO/CAP recommendation specimen must be fixed in 10% neutral bufferedformalin, fixation time must be no less than 6 hours and no more than 72 hours. ANTIBODIES:1. Antibody clones: ER Clone SP1 (Cell Greg) [place] Clone Y85 (Cell Greg) Her2-elaine SP3 (Cell Greg) Ki67 clone MIB1 ([employer])2. Detection System EnVision Flex ([employer]) Lisa Shay M.D. STATUS OF FDA APPROVAL: This test was developed and its performance characteristicsdetermined by [facility] Path[facility]. It has not been cleared or approved by the U.S. Food and DrugAdministration. The FDA hasdetermined that such clearance is not necessary. This test isused for clinical purposes. It shouldnot be regarded as investigational or for research.This laboratory is certified under the Clinical Laboratory Improvement Amendments of 1988(CLIA-88) as qualified to perform high complexity clinical testing. CPT Codes: 00752y7 Addendum Signed SIGNATURE ON FILE Jonathan Shay 11/05/18 1030 [facility] PATHOLOGY REPORT Result ID: [id number] Clinical History Left breast mass Diagnosis Breast, left, 2 o'clock, 6 cm from nipple, ultrasound-guided needle core biopsy: INFILTRATING DUCTAL CARCINOMA, MODIFIED VAUGHN JARVIS GRADE 1 3 OF 3 CORES, 0.6CM GREATE[employer] DIMENS[employer] ASSOCIATED INTERMEDIATE-GRADE CRIBRIFORM DCIS Gross Description CONTINUED ON NEXT PAGE RUN DATE: 11/05/18 [facility] - LAB *LIVE* PAGE 3 RUN TIME: 1031 Specimen Inquiry RUN USER: INTERFACE -SPEC #: [facility]:[id number] PATIENT: ERI ANDREWS #[id number] (Continued) [facility] PATHOLOGY REPORT (Continued) "Left breast biopsy @ 2 o'clock, 6 cm from nipple" Received in formalin are three yellow-lopez fibrofatty tissue cores, 1.1 - 1.5 cm in greatest dimension. The entire specimen submitted as A. /nr Fixation time: The specimen was obtained on October 27, 2018 and placed in formalinat 1341 CDT, processor started on October 28, 2018 at 0302 CDT, fixation time 13 hours 21 minutes. Microscopic Findings "Left breast biopsy @ 2 o'clock, 6 cm from nipple" Sections demonstratebreast parenchyma. Atypical infiltrating cell population is identified. The cells demonstrate m inimal pleomorphism with prominent ductal formation identified. Microcalcifications are seen in associated with the infiltrating carcinoma. Immunohistochemistry for p63 confirms the absence of myoepithelial cells surrounding the invasive carcinoma. The carcinoma demonstrates low mitotic activity (2/10 HPF). Associated intermediate-grade (cribriform) type DCIS is also identified. Intradepartmental Consultation: Marce Joaquin M.D. ELECTRONIC SIGNATURE Irvin Castellano M.D. [phone] Signed SIGNATURE ON FILE Irvin Castellano 11/01/18 1548 END OF REPORT
--- NOTE | 2020-07-24 09:57 | RAD REPORT ---
EXAM DESCRIPTION: CT - Ct Stroke Brain Wo Cont - 07/24/2020 9:46 am CLINICAL HISTORY: SLURRED SPEECH COMPARISON: No comparisons TECHNIQUE: Axial 5 millimeter thick images of the head were obtained without IV contrast. All CT scans are performed using dose optimization technique as appropriate and may include automated exposure control or mA/KV adjustment according to patient size. FINDINGS: No intracranial hemorrhage, mass, or cerebral edema. No acute cortical based infarction id entifiable. No cortical edema or sulcal effacement. No measurable atrophy change seen. Ventricles are normal. Patient does appear to have very minimal chronic ischemic change in the cerebral white matte r. Castrejon matter-white matter differentiation is preserved. Visualized portions of the mastoid air cells, paranasal sinuses, and orbits are unremarkable. Findings telephoned to Dr. Crisostomo 9:53 a.m. IMPRESSION: No CT evidence of acute intracranial process. Follow-up MR imaging can be obtained as warranted.
[2020-07-24 10:09] LABS: Absolute Lymphocytes (CBC) 0.9 K/uL (0.7-4.9); Hematocrit 39.6 % (36.0-45.0); Lymphocytes % 19.9 % (15.3-44.8); MPV 8.1 fL (7.6-11.3); RBC Red Blood Cell Count 4.18 M/uL (3.86-4.86)
[2020-07-24 10:18] LABS: Protime INR 0.86
[2020-07-24 10:30] LABS: BUN Blood Urea Nitrogen 16 mg/dL (7-18); Bicarbonate 25 mmol/L (21-32); Glucose Level 96 mg/dL (74-106); Potassium 3.6 mmol/L (3.5-5.1); Sodium Level 142 mmol/L (136-145); Troponin (Emerg Dept Use Only) < 0.02 ng/mL (0.0-0.045)
[2020-07-24] MEDS ORDERED: ASPIRIN 81 MG CHEWABLE TABLET ONE (10:46)
[2020-07-24] MEDS ORDERED: NA CHLORIDE 0.9% 500 ML ONE (10:46)
[2020-07-24] MEDS ORDERED: FOLIC ACID 5 MG/ML VIAL ONE (10:48)
--- NOTE | 2020-07-24 11:18 | RAD REPORT ---
EXAM DESCRIPTION: CT - Head angio - 07/24/2020 10:51 am CLINICAL HISTORY: SLURRED SPEECH TECHNIQUE: During dynamic enhancement using nonionic IV contrast, axial 1 millimeter thick images of the head were obtained. Sagittal and axial reconstruction images were generated using MIP technique and reviewed. All CT scans are performed using dose optimization technique as appropriate and may include automated exposure control or mA/KV adjustment according to patient size. COMPARISON: CT head same date FINDINGS: No aneurysm or vascular malformation identified. Major venous sinuses are patent. No stenosis, named branch occlusion, vasculitis or other significant vascular finding identifiable. P atient has tortuosity of the vertebrobasilar vasculature without a significant degree atherosclerotic change. Calcifications are seen in the bilateral internal carotid arteries. Patient has a prominent right posterior communicating artery. IMPRESSION: Unremarkable CT angio head examination for acute vascular finding.
--- NOTE | 2020-07-24 11:35 | EDPHYS ---
Physician Documentation [facility] Name: Khadijah Reyna Age: 75 yrs Sex: Female : 1945 Arrival Date: 07/24/2020 Time: 09:20 Bed 4 Private MD: ED Physician Haider Crisostomo HPI: 07/24 10:38 This 75 yrs old Female presents to ER via Wheelchair with complaints of S/S rn of Possible Stroke. 10:38 The patient presents to the emergency department with weakness of the right upper rn extremity, right lower extremity, a speech or higher order brain function problem, difficult walking. Onset: The symptoms/episode began/occurred last night. Associated signs and symptoms: Pertinent positives: weakness, Pertinent negatives: altered mental status, fever, neck stiffness, paresthesias, seizure, syncope, blurred vision, double vision, visual field changes, loss of vision. Severity of symptoms: At their worst the symptoms were mild in the emergency department the symptoms are unchanged. The patient has not experienced similar symptoms in the past. Reports last known normal 10 PM last night, woke up at 0200 already with symptoms of difficulty walking and right sided weakness. No head injury. No prior CVA. Recently taken off her BP medication 2/2 low blood pressure.. Historical: - Allergies: 09:32 Amoxicillin; sv - PMHx: 09:32 High Cholesterol; Hypertension; sv - Immunization history:: Adult Immunizations. - Social history:: Smoking status: unknown. - Family history:: not pertinent. - Hospitalizations: : No recent hospitalization is reported. ROS: 10:38 Constitutional: Negative for fever, chills, and weight loss, Eyes: Negative for injury, rn pain, redness, and discharge, Neck: Negative for injury, pain, and swelling, Cardiovascular: Negative for chest pain, palpitations, and edema, Respiratory: Negative for shortness of breath, cough, wheezing, and pleuritic chest pain, Abdomen/GI: Negative for abdominal pain, nausea, vomiting, diarrhea, and constipation, Back: Negative for injury and pain, : Negative for injury, bleeding, discharge, and swelling, MS/Extremity: Negative for injury and deformity, Skin: Negative for injury, rash, and discoloration, Neuro: Negative for headache, numbness, tingling, and seizure. Exam: 10:38 Constitutional: This is a well developed, well nourished patient who is awake, alert, rn and in no acute distress. Head/Face: Normocephalic, atraumatic. Eyes: Pupils equal round and reactive to light, extra-ocular motions intact. Lids and lashes normal. Conjunctiva and sclera are non-icteric and not injected. Cornea within normal limits. Periorbital areas with no swelling, redness, or edema. Cardiovascular: Regular rate and rhythm. No pulse deficits. Respiratory: No increased work of breathing, no retractions or nasal flaring. Abdomen/GI: Soft, non-tender Skin: Warm, dry MS/ Extremity: Pulses equal, no cyanosis. Neuro: Awake and alert, GCS 15, oriented to person, place, time, and situation. Cranial nerves II-XII grossly intact. Sensory grossly intact. 4+/5 strength RUE/RLE with slight drift and shaking with effort, 5/5 LUE/LLE. Vital Signs: 09:31 BP 155 / 81; Pulse 77; Resp 16; Temp 98.2; Pulse Ox 100% on R/A; Pain 0/10; hb 10:22 BP 152 / 78; Pulse 68; Resp 17; Pulse Ox 95% on R/A; tw2 11:20 BP 153 / 78; Pulse 70; Resp 17; Pulse Ox 99% on R/A; tw2 12:38 BP 156 / 93; Pulse 71; Resp 17; Pulse Ox 100% on R/A; tw2 13:30 BP 155 / 78; Pulse 67; Resp 17; Pulse Ox 99% on R/A; tw2 14:30 BP 161 / 87; Pulse 70; Resp 17; Pulse Ox 99% on R/A; tw2 15:30 BP 162 / 88; Pulse 65; Resp 17; Pulse Ox 100% on R/A; tw2 NIH Stroke Scale Scores: 10:00 NIHSS Score: 4 tw2 MDM: 09:26 Patient medically screened. rn 09:38 ED course: Went to bed at 10PM last night and felt fine, woke up at 0200 with trouble rn walking and weakness right side of body, daughter noted slurred speech this AM and then patient came in. Not sure if she took aspirin today. If CVA, outside of TPA window.. 09:53 ED course: NO acute findings on CT head. rn 11:33 Data reviewed: vital signs, nurses notes, lab test result(s), EKG, radiologic studies, rn CT scan, and as a result, I will admit patient. Counseling: I had a detailed discussion with the patient and/or guardian regarding: the historical points, exam findings, and any diagnostic results supporting the discharge/admit diagnosis, lab results, radiology results, the need for further work-up and treatment in the hospital. Response to treatment: the patient's symptoms have mildly improved after treatment, and as a result, I will admit patient. Admission orders: after a detailed discussion of the patient's condition and case, the admit orders are written by me. ED course: CTA neg for LVO, will admit to Dr. Mayer for further care and neuro consult. . 07/24 09:37 Order name: Magnesium rn 07/24 09:37 Order name: Troponin (emerg Dept Use Only) rn 07/24 09:37 Order name: Basic Metabolic Panel rn 07/24 09:37 Order name: CBC with Diff rn 07/24 09:37 Order name: Protime (+inr) rn 07/24 09:37 Order name: Ptt, Activated rn 07/24 09:38 Order name: ETOH Level rn 07/24 09:38 Order name: AMMONIA rn 07/24 09:39 Order name: Glucose, Ancillary Testing; Complete Time: 10:22 EDMS 07/24 10:10 Order name: CBC with Automated Diff; Complete Time: 10:22 EDMS 07/24 10:20 Order name: Alcohol Serum/Plasma; Complete Time: 10:22 EDDE 07/24 10:21 Order name: Ammonia; Complete Time: 10:22 EDDE 07/24 10:26 Order name: Protime (+INR); Complete Time: 10:34 EDMS 07/24 10:26 Order name: PTT, Activated Partial Thromb; Complete Time: 10:34 EDMS 07/24 09:37 Order name: CT Stroke Brain w/o Contrast rn 07/24 09:37 Order name: Stroke CXR 1 View rn 07/24 09:58 Order name: CT; Complete Time: 10:22 EDMS 07/24 10:30 Order name: Basic Metabolic Panel; Complete Time: 10:34 EDMS 07/24 10:30 Order name: Troponin (Emerg Dept Use Only); Complete Time: 10:34 EDDE 07/24 10:30 Order name: Magnesium; Complete Time: 10:34 EDMS 07/24 10:35 Order name: CT Head Angio rn 07/24 11:18 Order name: CT; Complete Time: 11:30 EDDE 07/24 11:55 Order name: COVID-19 : Document "Date of Symptom Onset" if Symptomatic. tw2 07/24 12:06 Order name: RAD EDDE 07/24 12:52 Order name: CORONAVIRUS EDDE 07/24 13:35 Order name: SARS-COV-2 RT PCR EDDE 07/24 14:01 Order name: MRI EDDE 07/24 14:08 Order name: MRI EDDE 07/24 14:09 Order name: MRI [facility] 07/24 09:37 Order name: EKG; Complete Time: 09:39 rn 07/24 09:37 Order name: Accucheck; Complete Time: 09:47 rn 07/24 09:37 Order name: Cardiac monitoring; Complete Time: 10:06 rn 07/24 09:37 Order name: EKG - Nurse/Tech; Complete Time: 10: rn 07/24 09:37 Order name: IV Saline Lock; Complete Time: 10: rn 07/24 09:37 Order name: Labs collected and sent; Complete Time: 10: rn 07/24 09:37 Order name: NPO; Complete Time: 10: rn 07/24 09:37 Order name: O2 Per Protocol; Complete Time: 10: rn 07/24 09:37 Order name: O2 Sat Monitoring; Complete Time: 10: rn 07/24 09:37 Order name: Stroke Swallow Screen; Complete Time: 10:38 rn Administered Medications: 10:38 Drug: Aspirin Chewable Tablet 324 mg Route: PO; tw2 10:38 Drug: foLIC Acid 1 mg Route: IVPB; Site: right antecubital; tw2 10:38 Drug: NS 0.9% 500 ml Route: IV; Rate: bolus; Site: right antecubital; 2 Point of Care Testing: Blood Glucose: 09:25 Blood Glucose: 92 mg/dL; sv Ranges: Critical Glucose Levels:Adult <50 mg/dl or >400 mg/dl <40 mg/dl or >180 mg/dl Disposition: 07/24/20 11:35 Hospitalization ordered by Rajinder Mayer for Observation. 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 - Bed requested for [facility] ER HOLD. - Status is Observation. tw2 - Condition is Stable. - Problem is new. - Symptoms have improved. NIH Stroke Scale - NIH Stroke Score Date: 07/24/2020 Time: 10:00 Total Score = 4 1a. Level of Consciousness (LOC) - 0(Alert) 1b. Level of Consciousness (LOC) (Year \\T\\ Age) - 0(Both) 1c. LOC Commands (Open \\T\\ Closes Eyes/Bible Worker) - 0(Both) 2. Best Gaze (Lateral Gaze Paresis) - 0(Normal) 3. Visual Field Loss - 0(No visual loss) 4. Facial Palsy - 0(Normal) 5a. Left Arm: Motor (10-second hold) - 0(No drift) 5b. Right Arm: Motor (10-second hold) - 1(Drift) 6a. Left Leg: Motor (5-second hold - always test supine) - 0(No drift) 6b. Right Leg: Motor (5-second hold - always test supine) - 1(Drift) 7. Limb Ataxia (finger/nose \\T\\ heel/rucker - test with eyes open) - 1(Present in one limb) 8. Sensory Loss (pinprick arms/legs/face) - 0(Normal) 9. Best Language: Aphasia (description/naming/reading) - 0(No aphasia) 10. Dysarthria (speech clarity - read or repeat words) - 1(Mild to Moderate) 11. Extinction and Inattention (visual/tactile/auditory/spatial/personal) - 0(No abnormality) Initials: tw2 Signatures: Dispatcher [employer] Shanti Ford RN RN sv Haider Crisostomo MD MD rn Wise, Tara, RN RN tw2 Corrections: (The following items were deleted from the chart) 13:09 11:35 Hospitalization Ordered by Rajinder Mayer for Observation. 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 Bed requested for Telemetry/MedSurg (observation). Status is Observation. Condition is Stable. Problem is new. Symptoms have improved. rn 17: 13:09 07/24/2020 11:35 Hospitalization Ordered by Rajinder Mayer for tw2 Observation. 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 Bed requested for [facility] ER HOLD. Status is Observation. Condition is Stable. Problem is new. Symptoms have improved. sv
--- NOTE | 2020-07-24 11:35 | ER ---
Nurse's Notes 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 Woke up around 0200 and noticed she had trouble walking, and went back to sleep. Woke up again around 0630 and still had trouble walking and noticed she was having involuntary shaking with hands and legs. Then around 0800 she was talking on the phone with daughter and she noticed that she was having trouble speaking and also BLE weakness with R>L. Coronavirus screen: Client denies travel out of the [place] in the last 14 days. At this time, the client does not indicate any symptoms associated with coronavirus-19. Ebola Screen: No symptoms or risks identified at this time. An acute neurological deficit is present. The patient has been moved to a treatment area. Pre-hospital glucose is not applicable to this patient. Risk Assessment: Do you want to hurt yourself or someone else? Patient reports no desire to harm self or others. Onset of symptoms was July 24, 2020. 09:30 Method Of Arrival: Wheelchair sv 09:30 Acuity: EMMY 3 sv 09:31 Initial Sepsis Screen: Does the patient meet any 2 criteria? No. Patient's initial hb sepsis screen is negative. Does the patient have a suspected source of infection? No. Patient's initial sepsis screen is negative. Triage Assessment: 10:40 The onset of the patients symptoms was July 24, 2020 at 02:00. General: Appears in no tw2 apparent distress. slender, well groomed, Behavior is calm, cooperative, appropriate for age. Pain: Denies pain. Neuro: Reports "was having trouble walking around 2 am but not now". Cardiovascular: Capillary refill < 3 seconds Patient's skin is warm and dry. Respiratory: Airway is patent Respiratory effort is even, unlabored, Respiratory pattern is regular, symmetrical. Derm: Skin is intact, is healthy with good turgor, Skin is dry, Skin temperature is warm. Musculoskeletal: Range of motion: intact in all extremities. Stroke Activation: Symptom onset > 6 hours Physician: Stroke Attending; Name: ; Notified At: ; Arrived At: Physician: Chief Stroke Resident; Name: ; Notified At: ; Arrived At: Physician: Stroke Resident; Name: ; Notified At: ; Arrived At: Physician: ED Attending; Name: ; Notified At: ; Arrived At: Physician: ED Resident; Name: ; Notified At: ; Arrived At: Historical: - Allergies: 09:32 Amoxicillin; sv - PMHx: 09:32 High Cholesterol; Hypertension; sv - Immunization history:: Adult Immunizations. - Social history:: Smoking status: unknown. - Family history:: not pertinent. - Hospitalizations: : No recent hospitalization is reported. Screenin:30 Abuse screen: Denies threats or abuse. Denies injuries from another. Nutritional hb screening: No deficits noted. Tuberculosis screening: No symptoms or risk factors identified. Fall Risk Total Garcia Fall Scale indicates Low Risk Score (25-44 pts). Fall prevention measures have been instituted. Frequent Obs/Assesments occuring Family Present and informed to notify staff if they need to leave bedside As available Patient and Family Educated on Fall Prevention Program and strategies. Assessment: 09:26 Reassessment: Dr Crisostomo at the bedside. sv 10:00 [place] Scoring: Arm Drift: Minor drift Visual Disturbance: No visual disturbance noted. tw2 Aphasia: No aphasia noted. Neglect: No neglect noted. 10:38 Patient has been NPO before screening. The patient is alert, and able to follow tw2 commands. The patient does not exhibit slurred or garbled speech. The patient is not exhibiting difficulty speaking. The patient does not exhibit difficulty understanding words. The patient is able to swallow own secretions with no drooling or need for suction. Patient tolerated one teaspoon of water. No drooling, immediate coughing, gurgling, or clearing of the throat was noted. The patient tolerated 90mL of water. No drooling, immediate coughing, gurgling, or clearing of the throat was noted. The patient passed the bedside swallow screening. Oral medications may be given as ordered. Contact Physician for further diet orders. Provider notified of bedside swallow screening results: Haider Crisostomo MD. 10:38 T-PA (Activase) Screening: T-PA (Activase) Screening: Contraindications: Patient tw2 reports onset of signs and symptoms of stroke greater than 6 hours ago:. 10:59 Reassessment: pt back from CT at this time, nad, spouse at bedside at this time. tw2 12:39 Reassessment: Patient appears in no apparent distress at this time. No changes from tw2 previously documented assessment. Patient and/or family updated on plan of care and expected duration. Pain level reassessed. Patient is alert, oriented x 3, equal unlabored respirations, skin warm/dry/pink. Vital Signs: 09:31 BP 155 / 81; Pulse 77; Resp 16; Temp 98.2; Pulse Ox 100% on R/A; Pain 0/10; hb 10:22 BP 152 / 78; Pulse 68; Resp 17; Pulse Ox 95% on R/A; tw2 11:20 BP 153 / 78; Pulse 70; Resp 17; Pulse Ox 99% on R/A; tw2 12:38 BP 156 / 93; Pulse 71; Resp 17; Pulse Ox 100% on R/A; tw2 13:30 BP 155 / 78; Pulse 67; Resp 17; Pulse Ox 99% on R/A; tw2 14:30 BP 161 / 87; Pulse 70; Resp 17; Pulse Ox 99% on R/A; tw2 15:30 BP 162 / 88; Pulse 65; Resp 17; Pulse Ox 100% on R/A; tw2 NIH Stroke Scale Scores: 10:00 NIHSS Score: 4 tw2 ED Course: 09:20 Patient arrived in ED. am2 09:25 Patient has correct armband on for positive identification. Placed in gown. Bed in low sv position. Call light in reach. Adult w/ patient. wire mesh knitter on. Pulse ox on. NIBP on. 09:25 Inserted saline lock: 22 gauge in right antecubital area, using aseptic technique. tw2 ,using aseptic technique. per JOSE Wagner Blood collected. 09:26 Haider Crisostomo MD is Attending Physician. rn 09:31 Lennie Jovel, JOSE is Primary Nurse. tw2 09:32 Triage completed. sv 09:32 Arm band placed on. sv 10:04 CT Stroke Brain w/o Contrast Sent. sv 10:07 EKG done per protocol. Performed by ED Staff. Shown to ED physician. hb 10:22 AMMONIA Sent. sv 10:22 Magnesium Sent. sv 10:22 Troponin (emerg Dept Use Only) Sent. sv 10:22 Basic Metabolic Panel Sent. sv 10:22 CBC with Diff Sent. sv 10:22 Protime (+inr) Sent. sv 10:23 Ptt, Activated Sent. sv 10:23 ETOH Level Sent. sv 11:30 CT Head Angio Sent. sv 11:34 Rajinder Mayer is Hospitalizing Provider. rn 13:00 No provider procedures requiring assistance completed. Patient admitted, IV remains in hb place. 13:06 CORONAVIRUS Sent. sv 13:06 COVID-19 : Document "Date of Symptom Onset" if Symptomatic. Sent. sv Administered Medications: 10:38 Drug: Aspirin Chewable Tablet 324 mg Route: PO; tw2 10:38 Drug: foLIC Acid 1 mg Route: IVPB; Site: right antecubital; tw2 10:38 Drug: NS 0.9% 500 ml Route: IV; Rate: bolus; Site: right antecubital; tw2 Point of Care Testing: Blood Glucose: 09:25 Blood Glucose: 92 mg/dL; sv Ranges: Outcome: 11:35 Decision to Hospitalize by Provider. rn 13:10 Admitted to ER Hold. Please see [facility] for further documentation. hb 13:10 Condition: stable 13:10 Instructed on the need for admit, Demonstrated understanding of instructions. 17:09 Patient left the ED. tw2 NIH Stroke Scale - NIH Stroke Score Date: 07/24/2020 Time: 10:00 Total Score = 4 1a. Level of Consciousness (LOC) - 0(Alert) 1b. Level of Consciousness (LOC) (Year \\T\\ Age) - 0(Both) 1c. LOC Commands (Open \\T\\ Closes Eyes/Pyrotechnics Press Tender) - 0(Both) 2. Best Gaze (Lateral Gaze Paresis) - 0(Normal) 3. Visual Field Loss - 0(No visual loss) 4. Facial Palsy - 0(Normal) 5a. Left Arm: Motor (10-second hold) - 0(No drift) 5b. Right Arm: Motor (10-second hold) - 1(Drift) 6a. Left Leg: Motor (5-second hold - always test supine) - 0(No drift) 6b. Right Leg: Motor (5-second hold - always test supine) - 1(Drift) 7. Limb Ataxia (finger/nose \\T\\ heel/rucker - test with eyes open) - 1(Present in one limb) 8. Sensory Loss (pinprick arms/legs/face) - 0(Normal) 9. Best Language: Aphasia (description/naming/reading) - 0(No aphasia) 10. Dysarthria (speech clarity - read or repeat words) - 1(Mild to Moderate) 11. Extinction and Inattention (visual/tactile/auditory/spatial/personal) - 0(No abnormality) Initials: tw2 Signatures: Shanti Stuart, Haider Wells RN, MD MD rn Baxter, Heather, RN RN Lennie Jovel RN RN tw2 Christian, Rayne am2
--- NOTE | 2020-07-24 12:06 | RAD REPORT ---
EXAM DESCRIPTION: RAD - Chest Single View - 07/24/2020 11:48 am CLINICAL HISTORY: slurred speech, weakness, Stroke protocol chest film COMPARISON: None TECHNIQUE: AP portable chest image was obtained 07/24/2020 11:48 am . FINDINGS: No focal lung parenchymal process. No failure or volume overload. Heart and vasculature ar e normal. No measurable pleural effusion and no pneumothorax. No acute bony abnormality seen. No acut e aortic findings suspected. IMPRESSION: No acute cardiopulmonary process.
[2020-07-24] MEDS ORDERED: ACETAMINOPHEN 500 MG TAB PO PRN (12:23)
[2020-07-24] MEDS ORDERED: ONDANSETRON 4 MG/2 ML VIAL IV PRN (12:23)
[2020-07-24] MEDS ORDERED: NA CHLORIDE 0.9% 1,000 ML IV SCH (13:00)
--- NOTE | 2020-07-24 13:09 | P.HP ---
Certification for Inpatient Patient admitted to: Inpatient With expected LOS: >2 Midnights Practitioner: I am a practitioner with admitting privileges, knowledge of patient current condition, hospital course, and medical plan of care. Services: Services provided to patient in accordance with Admission requirements found in Title 42 Section 412.3 of the Code of Federal Regulations Patient History Date of Service: 07/24/20 Reason for admission: Right-sided weakness History of Present Illness: 75 yo Female with past medical history of hypertension, hyperlipidemia , breast cancer came in with right-sided weakness and slurring of speech Associated with dizziness which started yesterday night and was brought to ER the possibly of stroke. States that it is insidious in onset start with slurred speech along with right upper and lower extremity weakness. Denies any headache. No fever or chills. No previous history of stroke. No blurring of vision. Patient was assessed in the ER and was found to have right sided weakness which improved and slurring of speech input as well and was admitted for further management and stroke protocol. BP 155 / 81; Pulse 77; Resp 16; Temp 98.2; Pulse Ox 100% on R/A; Pain 0/10; Allergies amoxicillin Allergy (Verified 07/24/20 12:51) UNK Home medications list reviewed: Yes Home Medications: Aspirin [Aspirin EC 81 MG] 81 mg PO DAILY 30 Days tablet. 07/24/20 Atorvastatin Calcium [Lipitor] 40 mg PO BEDTIME #30 tab 07/24/20 - Past Medical/Surgical History Past Medical History: Reviewed- Non-Contributory -: HTN -: HLD Past Surgical History: Reviewed- Non-Contributory - Family History Family History: Reviewed- Non-Contributory - Social History Smoking Status: Never smoker Review of Systems 10-point ROS is otherwise unremarkable Neurological: Weakness Physical Examination - Vital Signs Temperature: 98.2 F Blood Pressure: 146/88 Pulse: 76 Respirations: 16 Pulse Ox (%): 94 - Physical Exam General: Alert, In no apparent distress, Oriented x3 HEENT: Atraumatic, Normocephalic Neck: Supple Respiratory: Clear to auscultation bilaterally, Normal air movement Cardiovascular: Regular rate/rhythm, Normal S1 S2 Capillary refill: <2 Seconds Gastrointestinal: Soft and benign, W/out hepatosplenomegaly Musculoskeletal: No clubbing, No swelling Integumentary: No rashes, No breakdown Neurological: Normal speech, Abnormal gait Lymphatics: No axilla or inguinal lymphadenopathy - Studies Laboratory Data (last 24 hrs) 07/24/20 09:57: PT 9.9, INR 0.86, APTT 27.0 07/24/20 09:57: WBC 4.30, Hgb 13.1, Hct 39.6, Plt Count 183 07/24/20 09:57: Sodium 142, Potassium 3.6, BUN 16, Creatinine 1.54 H, Glucose 96, Magnesium 3.0 H Assessment and Plan - Problems (Diagnosis) (1) CVA (cerebral vascular accident) Current Visit: Yes Status: Acute Plan: Acute CVA in/T&A Out of PP window Start on aspirin statin Neurology consult Stroke protocol Will get an MRI of the brain. CTand CT of the head and neck noted with no acute changes. Will get an echocardiogram. Awaiting further recommendations from neurology (2) Hypertension Current Visit: Yes Status: Chronic Plan: Antihypertensives titrated Continue home medications and titrate as needed (3) Hyperlipidemia Current Visit: Yes Status: Chronic Plan: As an A1c and lipid panel in a.m. Continue statin Discharge Plan: Home Plan to discharge in: 48 Hours - Advance Directives Does patient have a Living Will: No Does patient have a Durable POA for Healthcare: No - Code Status/Comfort Care Code Status: Full Code Time Spent Managing Pts Care (In Minutes): 43
--- NOTE | 2020-07-24 14:00 | RAD REPORT ---
EXAM DESCRIPTION: MRI - Brain W/Wo Cont - 07/24/2020 1:44 pm CLINICAL HISTORY: Slurred speech COMPARISON: July 24, [address] TECHNIQUE: Axial, sagittal, and coronal magnetic images of the brain were obtained. 14 cc MultiHance administered intravenously FINDINGS: No significant abnormal signal within the brain is noted. The ventricles are normal in caliber. Diffusion-weighted/ ADC mapping sequences do not demonstrate evidence of an acute infarction. No abnormal enhancement within the brain is seen. An extra-axial fluid collection is not noted. Fluid within the sinuses/mastoids is not seen IMPRESSION: No acute intracranial abnormality displayed
--- NOTE | 2020-07-24 14:07 | RAD REPORT ---
EXAM DESCRIPTION: MRI - MRA Neck W/Wo Cont - 07/24/2020 1:49 pm CLINICAL HISTORY: Slurred speech COMPARISON: None. TECHNIQUE: Magnetic resonance angiogram of the neck was performed. 19 cc MultiHance was administered intravenously. 3D MIPS reconstruction performed FINDINGS: Mild plaque within the common carotid, internal carotid and external carotid arteries. No significant stenosis The left vertebral artery terminates into PICA. Mild narrowing involves the proximal left vertebral a rtery. Right vertebral artery unremarkable. IMPRESSION: Mild plaque within the carotid arteries NASCET criteria used. Mild 0-49% stenosis Moderate 50-69% stenosis Severe 70-99% stenosis
--- NOTE | 2020-07-24 14:08 | RAD REPORT ---
EXAM DESCRIPTION: MRI - MRA Head Wo Cont - 07/24/2020 1:49 pm CLINICAL HISTORY: Slurred speech COMPARISON: None. TECHNIQUE: Magnetic resonance angiogram was performed. 3D MIPS reconstruction performed FINDINGS: Mild narrowing branches of the middle cerebral arteries bilaterally likely chronic The anterior cerebral,, posterior cerebral, distal internal carotid and basilar arteries do not demon strate a significant stenosis. An aneurysm is not displayed. IMPRESSION: No significant abnormality is displayed
[2020-07-24 15:51] VITALS: TEMP 98.2
[2020-07-24 16:16] VITALS: BMI 23.3
[2020-07-24] MEDS ORDERED: NA CHLORIDE 0.9% 1,000 ML ONE (16:36)
[2020-07-24 16:40] VITALS: BP 146/88
--- NOTE | 2020-07-24 16:43 | P.DS ---
Admission Date: 07/24/20 Discharge Date: 07/24/20 Disposition: ROUTINE DISCHARGE Discharge Condition: GOOD Reason for Admission: Right-sided weakness - Problems (1) CVA (cerebral vascular accident) Current Visit: Yes Status: Acute (2) Hypertension Current Visit: Yes Status: Chronic (3) Hyperlipidemia Current Visit: Yes Status: Chronic Brief History of Present Illness: 75 yo Female with past medical history of hypertension, hyperlipidemia , breast cancer came in with right-sided weakness and slurring of speech Associated with dizziness which started yesterday night and was brought to ER the possibly of stroke. States that it is insidious in onset start with slurred speech along with right upper and lower extremity weakness. Denies any headache. No fever or chills. No previous history of stroke. No blurring of vision. Patient was assessed in the ER and was found to have right sided weakness which improved and slurring of speech input as well and was admitted for further management and stroke protocol. BP 155 / 81; Pulse 77; Resp 16; Temp 98.2; Pulse Ox 100% on R/A; Pain 0/10; Hospital Course: The patient was admitted and was monitor closely on telemetry. Patient underwent a stroke workup. Patient was started on aspirin and statin. Patient's symptoms improved very well and Neurology was consulted. MRI was negative for any acute stroke. Neurology recommended conservative management with outpatient follow up. Patient is being discharged home today in a stable condition with advice to follow up with PCP in 1 week and also with Neurology in 1-2 weeks and Cardiology in 1-2 weeks for an echocardiogram as outpatient Vital Signs/Physical Exam: Temp Pulse Resp BP Pulse Ox 98.2 F 76 16 146/88 H 94 07/24/20 16:40 07/24/20 16:40 07/24/20 16:40 07/24/20 16:40 07/24/20 16:40 General: Alert, In no apparent distress HEENT: Atraumatic, Normocephalic Neck: Supple, 2+ carotid pulse no bruit Respiratory: Clear to auscultation bilaterally, Normal air movement Cardiovascular: Regular rate/rhythm, Normal S1 S2 Capillary refill: <2 Seconds Gastrointestinal: Soft and benign, W/out hepatosplenomegaly Musculoskeletal: No clubbing, No swelling Integumentary: No rashes Neurological: Normal speech, Normal strength at 5/5 x4 extr Lymphatics: No axilla or inguinal lymphadenopathy Laboratory Data at Discharge: WBC 4.30 K/uL (4.3-10.9) 07/24/20 09:57 Hgb 13.1 g/dL (12.0-15.0) 07/24/20 09:57 Hct 39.6 % (36.0-45.0) 07/24/20 09:57 Plt Count 183 K/uL (152-406) 07/24/20 09:57 PT 9.9 SECONDS (9.5-12.5) 07/24/20 09:57 INR 0.86 07/24/20 09:57 APTT 27.0 SECONDS (24.3-36.9) 07/24/20 09:57 Sodium 142 mmol/L (136-145) 07/24/20 09:57 Potassium 3.6 mmol/L (3.5-5.1) 07/24/20 09:57 BUN 16 mg/dL (7-18) 07/24/20 09:57 Creatinine 1.54 mg/dL (0.55-1.3) H 07/24/20 09:57 Glucose 96 mg/dL (74-106) 07/24/20 09:57 Magnesium 3.0 mg/dL (1.8-2.4) H 07/24/20 09:57 Home Medications: Aspirin [Aspirin EC 81 MG] 81 mg PO DAILY 30 Days tablet. 07/24/20 Atorvastatin Calcium [Lipitor] 40 mg PO BEDTIME #30 tab 07/24/20 New Medications: Aspirin [Aspirin EC 81 MG] 81 mg PO DAILY 30 Days tablet. Atorvastatin Calcium [Lipitor] 40 mg PO BEDTIME #30 tab Diet: AHA Activity: Ad abhishek Followup: Moise Mattson MD [ACTIVE - CAN ADMIT] - Fuentes Mcclellan MD [ASSOCIATE-ACTIVE - CAN ADMIT] - CASSY MADERA [Primary Care Provider] - Time spent managing pt's care (in minutes): 40
[2020-07-24] MEDS ORDERED: RIVAROXABAN 15 MG TABLET PO SCH (17:00)
[2020-07-24 17:33] VITALS: O2SAT 100
[2020-07-24] MEDS ORDERED: ATORVASTATIN 40 MG TAB PO SCH (21:00)
--- NOTE | 2020-07-24 22:41 | CON ---
Date of Consultation: 07/24/2020 Reason For Consultation: Consultation called by Dr. Crisostomo because of possibility of stroke. History Of Present Illness: Ms. Reyna is a 75-year-old right-handed patient with history of breast cancer, hypertension, and dyslipidemia, who had an event early in the morning of 1 . She reportedly went to bed okay and her who was at the bedside that she woke up around cdl instructor, perhaps around 2, and actually tried to use the bathroom and that when she was coming back, she said she could determine she was going to pass out. She noted tunnelin g of vision. She did not have vertigo, chest pain, shortness of breath, nausea. She was next to the wall and slipped down the side of the wall and believed she "lost consciousness" for a brief while, and the reason she felt that is when her came to her side, she told him she must have lost co nsciousness because she seemed to have woken on the floor. She denied any head, neck, arm, leg, trun k, or body trauma as she slid down. He said she did not seem to know what happened and that was only brief, but she knew who he was and where she was and followed the instructions appropriately. She s aid that just prior to the episode in addition to the tunneling of vision, she felt both legs were be coming weak and she could no longer stand and that is why she slipped down. She notes that similar e pisodes have occurred in the past at a rate of approximately 1 every couple of months. She admits to drinking about 4 to 5 cups of coffee daily and does not drink much water. In addition, she has been very worried, anxious, stressed about her diagnosis dealing with breast cancer and has received mult iple courses of radiation directed by Dr. Sprague. She is also caring for a daughter who was going through a divorce and has medical problems of her own. She has had difficulty with sleep and has had some neck and back problems, possibly related to anxiety and stress. She denies a prior history of any strokes, cardiac infarction, seizures. She denies any alcohol or drug abuse. Past Medical History: As indicated. Allergies: AMOXICILLIN. Family History: Not contributory. Social History: No alcohol, tobacco, or IV drug use. Medications: Currently, she did receive aspirin 162 mg daily, Tylenol as needed 500 mg, Lipitor 40 m g at bedtime. She is on Lovenox 40 mg subcutaneously daily. She did receive a liter of normal salin e. She did receive initially Xarelto 15 mg, folic acid 1 mg and aspirin as indicated. Review of Systems: She denies any recent fevers, chills, nausea, vomiting, myalgias, arthralgias, rash, headache, weight change. No psychiatric issues, but anxiety and stress. Physical Examination: Vital Signs: Blood pressure 156/96, pulse 73, respiratory rate 15, temperature 98.3, and oxygen satu ration 98% to 99% on room air. Weight 140 pounds, height 5 feet 5 inches, BMI 23.3. General: Ms. Reyna is resting in bed. She is in no acute distress. HEENT: She is normocephalic, atraumatic. Sclerae anicteric. Oropharynx is pink and moist. Neck: Supple. Chest: Clear. Heart: Regular. Extremities: Show no edema, cyanosis, or clubbing. Neurological: She is alert and oriented to person, place, time, and situation. She has no expressiv e or receptive aphasias. She has normal labial, lingual and guttural sounds. Cranial nerves 2 throu gh 12 are intact by exam. Motor examination, she has no focal weakness in the upper and lower extrem ities, proximally and distally 5/5. Sensory exam intact in the upper and lower extremities to light touch and temperature. Coordination intact in upper and lower extremities with [id number], heel- to-rucker, and reflexes are 1+ into the biceps, triceps, and 0 at the patellae and 0 at the heels. Chuck Wagon Cook rdination intact in the upper and lower extremities. Gait, she has good stance and stride. Laboratory Studies: Complete blood count with differential is completely normal including white bloo d cells, hemoglobin, hematocrit, coagulation panel, INR 0.86. Chemistries consistent with dehydratio n. Sodium 142, potassium 3.6, chloride elevated to 111, BUN of 16, creatinine 1.53. Magnesium sligh tly elevated at 3.0, calcium normal at 8.6, blood sugar range 92 to 96. Ammonia level less than 10. Rapid troponin 1 less than 0.02. Her alcohol level in the serum is less than 10, and PCR for COVID- 19 SARS-CoV-2 RNA is negative. Assessment: Ms. Reyna is a 75-year-old patient who likely had a syncopal episode secondary to dehy dration and significant social stressors; however, she does have risk factors for stroke, but her bra in MRI which was done earlier is completely unremarkable except for mild small-vessel disease. MRA o f her head and neck showed no significant abnormalities; therefore, she has no evidence of stroke by imaging and neurological exam also supports no evidence of a stroke. She does not have anemia, but s he has renal insufficiency, possibly secondary to dehydration and drinking 4-5 cups of coffee without much water in a day. Plan: 1.She was told to drink 8 glasses to 10 glasses of water daily and to cut back to 1 cup of coffee da ramana. 2.She was told on the importance of stress reduction exercise, which is stretching, stren gthening and aerobics to mitigate the affects of stress also. 3.Aspirin 81 mg daily. 4.Folic acid 1 mg daily. 5.Aggressive management of hypertension and dyslipidemia. 6.The patient may be discharged home and at some point, call the office to have a routine electroenc ephalogram. She again may be discharged home. She could benefit also from an echocardiogram and car otid Doppler. The physician's orthopaedic physician assistant taking care of the patient was worried about the possibility of a pulmonary embolus. Her saturations have been perfectly normal. No shortness of breath or ches t pain. She has no PND, palpitations, or cough, not clear that there is any evidence for that; howev er, she may have the V/Q scan if necessary. PHYLICIA/KEYON Voice ID: [id number] Report ID: [id number]
--- NOTE | 2020-07-25 08:45 | EKG ---
Test Date: 2020-07-24 Test Time: 10:00:40 Rn Lactation Consultant: FAUSTO MEASUREMENT RESULTS: Intervals: Rate: 67 ND: 174 QRSD: 76 QT: 442 QTc: 467 [place]: P: 76 ND: 174 QRS: -59 T: 107 INTERPRETIVE STATEMENTS: Normal sinus rhythm Possible Left atrial enlargement Left axis deviation Pulmonary disease pattern Nonspecific ST and T wave abnormality Abnormal ECG No previous ECG available for comparison Electronically Signed On 07-25-20 08:41:47 CDT by Moise Mattson
[2020-07-25] MEDS ORDERED: ENOXAPARIN 40 MG/0.4 ML SQ SCH (09:00)
[2020-07-25] MEDS ORDERED: ASPIRIN EC 81 MG TAB PO SCH (09:00)
== END 2020-07-24 17:09 | disposition home or self-care (01) | DRG 641 ==
LOC: ER 09:19 → ERHOLD 12:24
PROVIDERS: ADMIT Hospitalist; ATTEND Hospitalist
DX: E86.0 Dehydration (principal); E78.5 Hyperlipidemia, unspecified; I10 Essential (primary) hypertension; N28.9 Disorder of kidney and ureter, unspecified; Z88.1 Allergy status to other antibiotic agents; Z85.3 Personal history of malignant neoplasm of breast; Z79.82 Long term (current) use of aspirin; Z79.899 Other long term (current) drug therapy; Z20.822 Contact with and (suspected) exposure to COVID-19
CPT/HCPCS: 36415; 70450; 70496; 70544; 70549; 70553; 71045; 80048; 80320; 82140; 82947; 83735; 84484; 85025; 85610; 85730; 93005; 96374; 97161; 99285; A9577; J7030; J7040; Q9967; U0003

== ENCOUNTER 2024-02-18 06:44 | Day surgery (SDC) | payer OTHER ==
[2024-02-16 14:03] LABS: Absolute Eosinophils 0.1 K/uL (0-0.5); Absolute Lymphocytes (CBC) 1.2 K/uL (0.7-4.9); Absolute Monocytes 0.4 K/uL (0.1-1.3); Absolute Neutrophil 2.6 K/uL (1.8-8.0); Basophils % 1.1 % (0-1.3); Eosinophils % 2.7 % (0-4.4); Hemoglobin 13.4 g/dL (12.0-15.0); Lymphocytes % 26.9 % (15.3-44.8); MCH 31.5 pg (27.0-35.0); MCHC 32.8 g/dL (32.0-36.0); MCV 96.2 fL (80-100); MPV 8.4 fL (7.6-11.3); Monocytes % 8.6 % (3.3-12.3); Neutrophils % 60.7 % (41.7-73.7); Platelets 172 thou/uL (152-406); RBC Red Blood Cell Count 4.26 M/uL (3.86-4.86)
--- NOTE | 2024-02-16 14:09 | RAD REPORT ---
EXAMINATION: TWO VIEW CHEST XR CLINICAL INDICATION: pre op for day surgery TECHNIQUE: 2 views of the chest was performed. COMPARISON: 07/24/2020 FINDINGS: The lungs are hyperexpanded suggesting COPD. The heart is normal in size. No displaced fractures evid ent. IMPRESSION: Mild COPD. The USPSTF recommends annual screening for lung cancer with low-dose computed tomography (LDCT) in ad ults aged 50 to 80 years who have a 20 pack-year smoking history and currently smoke or have quit within the past 15 years. Screening should be discontinued once a person has not smoked for 15 years or develops a health problem that substantially limits life expectancy or the ability or willingness to have curative lung surgery.
[2024-02-16 14:12] LABS: Anion Gap 6.9 mEq/L (5.0-15.0); Potassium 3.9 mEq/L (3.5-5.1)
[2024-02-18] MEDS ORDERED: CEFAZOLIN SODIUM 2 GM/VIAL ONE (06:50)
[2024-02-18] MEDS: Ringers Lactate 1,000 ML IV ONE (07:00)
[2024-02-18] MEDS ORDERED: BUPIVACAINE 0.5% PF 10 ML VIAL ONE (07:02)
[2024-02-18] MEDS: BUPIVACAINE 0.5% PF 10 ML VIAL SQ ONE ×3 (07:26→08:05)
[2024-02-18] MEDS ORDERED: ONDANSETRON 4 MG/2 ML VIAL ONE (08:08)
[2024-02-18] MEDS ORDERED: FENTANYL CITR 100 MCG/2 ML ONE (08:08)
[2024-02-18] MEDS ORDERED: propofoL 200 MG/20 ML VIAL IV ONE (08:08)
[2024-02-18] MEDS ORDERED: LIDOCAINE 2% MPF 5 ML VIAL ONE (08:08)
[2024-02-18] MEDS ORDERED: EPHEDRINE SULF 50 MG/ML VIAL ONE (08:09)
--- NOTE | 2024-02-18 08:49 | P.OP ---
Date of Service: 02/18/24 Preop diagnosis: Right leg mass rule out skin cancer Postop diagnosis: Same Procedure performed: Wide excision right leg mass 5 x 3 cm with layered closure Surgeon: Steve Kohli MD Jv Baseball Coach: None Estimated blood loss: Minimal Specimen: Right leg mass Findings: Squamous cell carcinoma in situ, margins free Anesthesia: General Complications: None Drains: None Fluids and blood products: Nonapplicable Disposition: Recovery room Operative note: Patient brought to the OR and placed in supine position. General anesthesia began. Patient placed in the left lateral position. Patient prepped and draped in the usual sterile fashion. Marcaine 0.5% infiltrated locally. 15 blade used to make a 5 x 3 cm incision to include the ulcerated approximately 2 x 1 cm mass with irregular borders. Subcutaneous tissue divided. Entire mass excised and labeled appropriately. Frozen section revealed squamous cell carcinoma in situ with margins free. Wound irrigated and bleeding controlled cautery. Flaps created. 3-0 chromic used to approximate subcutaneous tissue. 4 nylon used to close skin. Sterile dressing applied. Patient awakened taken to recovery room in good general condition. CC: Dr. Gan's office
[2024-02-18] MEDS ORDERED: HYDROCODONE/APAP 7.5/325 MG TAB PO PRN (08:52)
[2024-02-18 10:20] VITALS: BP 135/62; TEMP 97.5; O2SAT 100
--- NOTE | 2024-02-19 15:56 | EKG ---
Test Date: 2024-02-16 Test Time: 14:43:49 Skilled Labor: KEE MEASUREMENT RESULTS: Intervals: Rate: 57 WA: 158 QRSD: 78 QT: 448 QTc: 436 [place]: P: 62 WA: 158 QRS: -80 T: 43 INTERPRETIVE STATEMENTS: Sinus bradycardia Left axis deviation Septal infarct, age undetermined Abnormal ECG Compared to ECG 07/24/2020 10:00:40 Myocardial infarct finding now present Sinus rhythm no longer present ST (T wave) deviation no longer present Electronically Signed On 02-19-24 15:51:27 INTERMEDIATE DESIGNER by Wili Ordaz
== END 2024-02-18 10:14 | disposition home or self-care (01) ==
LOC: OR 06:44
PROVIDERS: ATTEND Surgery
PROC: 0JBN0ZZ Excision of Right Lower Leg Subcutaneous Tissue and Fascia, Open Approach (ICD-10-PCS; principal; 2024-02-18 07:30)
DX: D04.71 Carcinoma in situ of skin of right lower limb, including hip (principal)
CPT/HCPCS: 11606; 93005; 85025; 80048; 36415; 88331; 88332; 88305; 71046; J2704; J2003; J3010; J2405; J7120